=== PATIENT | male | born 1970 | race Caucasian/White ===

== ENCOUNTER 2016-11-09 07:00 | Day surgery (SDC) | payer BC ==
[2016-11-08 06:53] LABS: BASOPHILS 0.5 %; BASOPHILS ABSOLUTE 0.04 10/3/uL (0.0-0.16); EOSINOPHILS 4.5 %; EOSINOPHILS ABSOLUTE 0.33 10/3/uL (0.0-0.53); HEMOGLOBIN 16.6 g/dL (13.6-17.8); IMMATURE GRANULOCYTES 0.8 %; IMMATURE GRANULOCYTES ABSOLUTE 0.06 10/3/uL (0.0-0.11); LYMPHOCYTES 19.2 %; LYMPHOCYTES ABSOLUTE 1.41 10/3/uL (0.67-4.30); MEAN CORPUS HGB CONC 35.3 g/dL (32.0-36.0); MEAN CORPUSCULAR HEMOGLOB 30.3 pg (26.0-34.0); MEAN CORPUSCULAR VOLUME 85.8 fL (80-100); MEAN PLATELET VOLUME 9.9 fL (9.2-13.0); MONOCYTES 6.9 %; MONOCYTES ABSOLUTE 0.51 10/3/uL (0.21-1.20); NEUTROPHILS 68.1 %; PLATELET COUNT 176 10/3/uL (150-400); RBC DISTRIBUTION WIDTH 13.6 % (12.0-16.0); RED CELL COUNT 5.48 10/6/uL (4.7-6.1); WHITE BLOOD CELLS 7.4 10/3/uL (4.5-10.5)
[2016-11-08 06:55] LABS: MANUAL DIFF NO %
[2016-11-08 06:56] LABS: ASCORBIC ACID (UR NOT ORDER) NEG (NEG); BILIRUBIN, URINE NEGATIVE (NEG); KETONE, URINE NEGATIVE (NEG); LEUKOCYTE ESTERASE(NOT OR NEG (NEG); WBC (NOT ORDERED) (RFLEX) < 1 (0-5)
[2016-11-08 07:11] LABS: BUN (BLOOD UREA NITROGEN) 28 MG/DL (6-23); CALCIUM, SERUM 9.5 MG/DL (8.5-10.4); CHLORIDE, SERUM 110 MMOL/L (96-112); CO2 (CARBON DIOXIDE) 30 MMOL/L (24-34); CREATININE 1.07 MG/DL (0.70-1.30); GFR AFRICAN AMERICAN 95 ML/MIN (>=60); GFR NON AFRICAN AMERICAN 82 ML/MIN (>=60); GLUCOSE, SERUM 118 MG/DL (60-99); SODIUM, SERUM 147 MMOL/L (135-148)
--- NOTE | ~2016-11-09 | OP ---
Record Of Operation [facility] [address] [place]. [address] NAME: HARIS PERDOMO : 68 STATUS : [facility]#: [id number] AGE: 46 ADM/REG DATE : 11/09/16 MR#: [id number] REPORT SERV DATE: 11/10/16 DICTATED BY: JOSELIN PONCE DATE: 11/10/16 REPORT STATUS : Draft TRANSCRIBED BY: MODL DATE: 11/10/16 DATE OF PROCEDURE: 11/09/2016 PREOPERATIVE DIAGNOSIS: Painful and enlarging supraumbilical/epigastric midline hernia. POSTOPERATIVE DIAGNOSIS: Painful and enlarging supraumbilical/epigastric midline hernia with herniated preperitoneal fat. PROCEDURE: Mesh underlay repair of the supraumbilical/epigastric hernia. SURGEON: Joselin Ponce M.D. ANESTHESIA: General endotracheal. ESTIMATED BLOOD LOSS: Nil. FLUIDS: Crystalloid. SPECIMEN: None. DRAINS: None. COMPLICATION: None. CONDITION: Good. INDICATIONS: Mr. Perdmoo is a 46-year-old, who is physically a large muscular gentleman with a physically very demanding job. Over the last number of months, he has developed a painful, enlarging supraumbilical mass that is interfering with work and everyday activities. He also is really not in a situation where he feels he can afford limited activity for six to eight weeks that would be required with a standard sutured repair. We thoroughly discussed pros and cons of mesh repair and then based on body habitus and physically demanding job and an inability to have a restricted physical activity, schedule of recommended mesh repair, to which he and are understanding and agreeable. PROCEDURE IN DETAIL: After being identified and marked in preop holding, he brought to the OR and positioned supine. General endotracheal anesthesia was induced. Time-out was performed. Abdomen was prepped and draped sterilely. Ancef was given intravenously. 0.5% Marcaine was infiltrated in the skin overlying the hernia. Skin was excised. We dissected through a thin subcutaneous layer and exposed herniated preperitoneal fat 3 to 4 cm mass. This was dissected down to the fascial edge, which was sharply dissected circumferential. The fat was then reduced into the preperitoneal plane. The defect was immediate supraumbilical. Grasped the edges of fascia with the Allis clamp and carefully and serially dissected the preperitoneal fat away from the underlying fascia for a distance of about 3 cm circumferential, thoroughly palpated. There were no other hernia defects. 4 cm oval of the patch with tail was brought onto the field. It was positioned deep to the fascia such that Record Of Operation [facility] [address] [place]. [address] NAME: HARIS PERDOMO : 68 STATUS : [facility] PAT#: [id number] AGE: 46 ADM/REG DATE : 11/09/16 MR#: [id number] REPORT SERV DATE: 11/10/16 DICTATED BY: JOSELIN PONCE DATE: 11/10/16 REPORT STATUS : Draft TRANSCRIBED BY: MODL DATE: 11/10/16 the mesh was in smooth apposition to the connective tissue circumferential. The tails were trimmed and the fascial defect was closed inclusive of the trimmed mesh tails with running 2 0 Prolene, had a good quality closure. Broadly infiltrated the fascia and the preperitoneal tissues with the Marcaine solution. Subcutaneous was closed with running 3-0 Vicryl. Dermis was closed with 4-0 Monocryl, followed by Steri-Strips. The umbilicus was packed with sterile gauze and occlusive Telfa, Tegaderm was applied. Mr. Perdomo tolerated the surgery well and, was recovered from his anesthetic, extubated, and transported to the recovery room in good condition. MICHEL/SERENA Joselin Ponce M.D. / [id number] CC: Joselin Ponce M.D.
[~2016-11-09 07:00] MED LIST: CLARIT10 PO; HYZAAR1 TAB PO; NORV5 PO; PREV15 PO
== END 2016-11-09 16:50 | disposition home or self-care (01) ==
LOC: SDC 07:00
PROVIDERS: Surgery
PROC: 0WUF0JZ Supplement Abdominal Wall with Synthetic Substitute, Open Approach (ICD-10-PCS; principal; 2016-11-09 08:45)
DX: K42.9 Umbilical hernia without obstruction or gangrene (principal); I10 Essential (primary) hypertension; K21.9 Gastro-esophageal reflux disease without esophagitis; Z98.890 Other specified postprocedural states; Z79.899 Other long term (current) drug therapy
CPT/HCPCS: 80048; 81001; 85025; 87641; 93005; A9270-GY; C1781; J0690; J2250; J2405; J2710; J3010